=== PATIENT | male | born 1980 | race African-American/Black ===

== ENCOUNTER 2022-08-31 05:08 | Emergency (ER) | payer MEDICAID ==
[~2022-08-31] VITALS: Ht 172.7 cm; Wt 90.7 kg
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
[2022-08-31] MEDS ORDERED: CYCLOBENZAPRINE 10 MG TABLET ONE (06:30)
[2022-08-31] MEDS ORDERED: CYCLOBENZAPRINE 10 MG TABLET PO ONE (06:30)
[2022-08-31] MEDS ORDERED: IBUPROFEN 600 MG TABLET PO ONE (06:30)
[2022-08-31] MEDS ORDERED: IBUPROFEN 600 MG TABLET ONE (06:31)
[2022-08-31] MEDS ORDERED: CYCL5TAB PO (06:32)
--- NOTE | 2022-08-31 06:37 | NUR ---
Patient discharged to home in stable condition. Written and verbal after care instructions given. Patient verbalizes understanding of instruction.
[2022-08-31 06:42] VITALS: BP 143/70
== END 2022-08-31 06:43 | disposition home or self-care (01) ==
LOC: ER 05:08
DX: M54.2 Cervicalgia (principal); I10 Essential (primary) hypertension